=== PATIENT | male | born 1990 | race American Indian/Alaskan Native ===

== ENCOUNTER 2017-11-01 21:01 | Emergency (ER) | payer OTHER ==
[2017-11-01 22:06] VITALS: BP 151/101
[2017-11-02] MEDS ORDERED: ULTRAM PO ONE (03:13)
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
== END 2017-11-02 04:09 | disposition home or self-care (01) ==
LOC: ED 21:01
DX: S16.1XXA Strain of muscle, fascia and tendon at neck level, initial encounter (principal); M79.642 Pain in left hand; M79.641 Pain in right hand; Z88.0 Allergy status to penicillin; V89.2XXA Person injured in unspecified motor-vehicle accident, traffic, initial encounter; Y93.89 Activity, other specified; Y92.89 Other specified places as the place of occurrence of the external cause; Y99.8 Other external cause status
CPT/HCPCS: 99282

== ENCOUNTER 2018-06-26 14:40 | Emergency (ER) | payer SELFPAY ==
[2018-06-26 14:49] VITALS: BP 137/80
--- NOTE | 2018-06-26 18:47 | Emergency Department Report ---
Chief Complaint: Urogenital-Male Stated Complaint: GROIN/STOMACH PAIN Time Seen by Provider: 06/26/18 18:10 - HPI History of Present Illness: This is a 28-year-old -[place] male who presents with tingling sensation and penile discharge for 1 day. Patient admits to recent STD exposure. He noticed a milky white discharge yesterday with lower abdominal pains x 2. He didn't think about it until this morning because he thought it was cramping pain. Patient denies frequency, urgency, dysuria, low back pain, fever, or testicular pain or swelling - ROS Review of Systems: penile discharge and tingling sensation - Exam Vital Signs: Vital Signs 06/26/18 14:44 Temperature 98.3 F Pulse Rate 93 H Respiratory 18 Rate Blood Pressure 137/80 O2 Sat by Pulse 100 Oximetry Physical Exam: GENERAL: The patient is looking well, in no acute distress. CHEST: Air entry is adequate bilaterally. No crackles are appreciated. HEART: Sounds 1 and 2 are heard and are normal. Regular rate and rhythm, no murmurs, gallops, or rubs. ABDOMEN: Soft and nontender. Bowel sounds are present. There is no hepatosplenomegaly. SKIN: Without rash. EXTREMITIES: Without edema, cyanosis, or clubbing. MSE screening note: Focused history and physical exam performed. Due to findings the following was ordered: Admission discussed options with patient. Patient refused. Patient was given a handout to follow-up in health department or with [facility] for STD screening and treatment. ED Disposition for MSE Condition: Stable Referrals: PRIMARY CARE [Primary Care Provider] - 3-5 Days
== END 2018-06-26 18:45 | disposition left against medical advice (07) ==
LOC: ED 14:40
DX: R20.2 Paresthesia of skin (principal); R36.9 Urethral discharge, unspecified; Z88.0 Allergy status to penicillin
CPT/HCPCS: 99281